=== PATIENT | male | born 1960 | race African-American/Black ===

== ENCOUNTER 2018-05-31 20:57 | Emergency (ER) | payer SELFPAY ==
[2018-05-31] MEDS ORDERED: HYDROXYZINE PAMOATE 25 MG CAPSULE (4 CAP/ER DISP) PO PRN (22:53)
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
[2018-06-01 00:28] VITALS: BP 136/104
== END 2018-05-31 23:15 | disposition home or self-care (01) ==
LOC: ER 20:57
DX: F41.9 Anxiety disorder, unspecified (principal)
CPT/HCPCS: 99283; J3490

== ENCOUNTER 2020-02-24 02:22 | Emergency (ER) | payer MEDICARE, MEDICAID ==
--- NOTE | 2020-02-24 02:57 | ER Document Report ---
ED General - General Chief Complaint: Skin Sore(s) Stated Complaint: RASH ON ANKLES Notes: 59-year-old male presents with several days of itchy rash with blisters on both legs from the feet to the mid calf bilaterally. Not spreading up the legs. Does not think he is getting any new lesions. No fever chills. 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 TRAVEL OUTSIDE OF THE [place] IN LAST 30 DAYS: No - Related Data Home Medications: metformin, trigenta 2 other meds Past Medical History - Social History Smoking Status: Current Every Day Smoker Family History: Reviewed & Not Pertinent Patient has homicidal ideation: No Renal/ Medical History: Denies: Hx Peritoneal Dialysis Review of Systems - Review of Systems Notes: REVIEW OF SYSTEMS GEN: Denies fever, chills, weight loss ENT: Denies sore throat, nasal discharge, ear pain EYES: Denies blurry vision, eye pain, discharge CV: Denies chest pain, palpitations, edema RESP: Denies cough, shortness of breath, wheezing GI: Denies abdominal pain, nausea, vomiting, diarrhea MSK: Denies joint pain/swelling, edema, SKIN: Rash as per HPI LYMPH: Denies swollen glands/lymph nodes NEURO: Denies headache, focal weakness or numbness, dizziness PSYCH: Denies depression, suicidal or homicidal ideation PHYSICAL EXAMINATION General: No acute distress, well-nourished Head: Atraumatic, normocephalic ENT: Mouth normal, oropharynx moist, no exudates or tonsillar enlargement Eyes: Conjunctiva normal, pupils equal, lids normal Neck: No JVD, supple, no guarding CVS: Normal rate, regular rhythm, no murmurs Resp: No resp distress, equal and normal breath sounds bilaterally GI: Nondistended, soft, no tenderness to palpation, no rebound or guarding Ext: Edema bilaterally symmetric Back: No CVA or midline TTP Skin: Innumerable bullae less than 1 cm, with clear serous exudate and crusting on both legs from the foot to the calf bilaterally. Tender. Compartments are soft. Lymphatic: No lymphadeopathy noted Neuro: Awake, alert. Face symmetric. GCS 15. Physical Exam - Vital signs Vitals: Temp Pulse Resp BP Pulse Ox 98.2 F 88 20 161/98 H 98 02/24/20 02:35 02/24/20 02:35 02/24/20 02:35 02/24/20 02:35 02/24/20 02:35 Course - Re-evaluation Re-evalutation: 02/24/20 02:57 Vesiculobullous eruption on both legs in a diabetic without signs, likely, given his care at home, of secondary infection next Vach or other severe complication. Vitals look good. I am going to prescribe Bactroban ointment and Keflex assuming this is impetigo for now. Do not think this reflects insect bites scabies chiggers etc. Patient is stable for discharge and will follow up with his primary care. I have discussed with the patient there likely diagnosis, aftercare plan, follow-up plans and my usual and customary return precautions. They verbalized understanding of this. - Vital Signs Vital signs: Temp Pulse Resp BP Pulse Ox 98.2 F 88 20 161/98 H 98 02/24/20 02:42 02/24/20 02:35 02/24/20 02:35 02/24/20 02:35 02/24/20 02:35 Discharge - Discharge Clinical Impression: Impetigo bullosa Condition: Good Disposition: HOME, SELF-CARE Instructions: Bactroban Ointment ([facility]), Impetigo ([facility]), Cephalexin ([facility]) Additional Instructions: Keep your legs clean by washing with soap and water once per day. Do not pop the blisters. You are a diabetic and could contract a serious infection. Prescriptions: Mupirocin [Bactroban 2% Ointment 22 gm] 1 applic TP TID #1 tube Cephalexin Monohydrate [Keflex 500 mg Capsule] 500 mg PO QID #28 capsule Referrals: BRANDI HARRIS PA-C [NO LOCAL MD] - Follow up in 3-5 days (For wound check)
[2020-02-24 04:03] VITALS: BP 148/101
== END 2020-02-24 03:50 | disposition home or self-care (01) ==
LOC: ER 02:22
DX: L01.03 Bullous impetigo (principal); F17.200 Nicotine dependence, unspecified, uncomplicated; Z79.4 Long term (current) use of insulin
CPT/HCPCS: 99282

== ENCOUNTER 2020-03-08 08:25 | Emergency (ER) | payer MEDICARE, MEDICAID ==
--- NOTE | 2020-03-08 11:00 | ER Document Report ---
ED General - General Chief Complaint: Leg Pain Stated Complaint: LEG PAIN Primary Care Provider: BRANDI HARRIS PA-C [Primary Care Provider] - Follow up as needed Mode of Arrival: Ambulatory Information source: Patient Notes: Patient is a 59-year-old male presenting to the emergency department chief complaint of lesions to bilateral lower extremities. Patient states that on 07 February he noticed the first blister since that point in time both feet and both ankles are blistered swollen and many of the blisters have ruptured he states that his cat and her kittens may have had fleas and that may have been the initiation. Patient is a diabetic and is HIV positive. Patient states that overall he is here because he cannot stand the pain and the itching. Patient denies any other exposures denies any changes in medications or hygiene products. Patient denies any other complaints above the knees. TRAVEL OUTSIDE OF THE [place] IN LAST 30 DAYS: No - HPI Onset: Other - 1 mo Onset/Duration: Gradual, Worse Quality of pain: Pressure, Throbbing Severity: Moderate Pain Level: 2 Associated symptoms: denies: Chest pain, Chills, Productive cough, Diarrhea, Fever, Nausea, Vomiting, Weakness Exacerbated by: Movement, Walking Relieved by: Denies Similar symptoms previously: Yes Recently seen / treated by doctor: Yes - Related Data Allergies/Adverse Reactions: tetracycline Allergy (Verified 03/08/20 08:33) Home Medications: atb. ointment. hiv meds. atorvastatin 40mg. glipizide er 5 mg. metformin 1000mg. symtuza [phone]. tradjuenta 5 mg Past Medical History - General Information source: Patient, [facility] Records - Social History Smoking Status: Current Every Day Smoker Cigarette use (# per day): Yes Chew tobacco use (# tins/day): No Smoking Education Provided: Yes Frequency of alcohol use: None Drug Abuse: None Lives with: Alone Family History: Reviewed & Not Pertinent Patient has suicidal ideation: No Patient has homicidal ideation: No - Past Medical History Cardiac Medical History: Reports: Hx Hypercholesterolemia Endocrine Medical History: Reports: Hx Diabetes Mellitus Type 2 Renal/ Medical History: Denies: Hx Peritoneal Dialysis Infectious Medical History: Reports: Hx HIV Past Surgical History: Reports: Hx Abdominal Surgery - hernia Review of Systems - Review of Systems Notes: REVIEW OF SYSTEMS: CONSTITUTIONAL : Denies fever, chills, or sweats. Denies recent illness. EENT: Denies eye, ear, throat, or mouth pain or symptoms. Denies nasal or sinus congestion. CARDIOVASCULAR: Denies chest pain. RESPIRATORY: Denies cough, cold, or chest congestion. Denies shortness of breath, difficulty breathing, or wheezing. GASTROINTESTINAL: Denies abdominal pain. Denies nausea, vomiting, or diarrhea. Denies constipation. GENITOURINARY: Denies difficulty urinating, painful urination, burning, frequency, or blood in urine. MUSCULOSKELETAL: Per HPI SKIN: Per HPI HEMATOLOGIC : Denies easy bruising or bleeding. NEUROLOGICAL: Denies altered mental status or loss of consciousness. Denies headache. Denies weakness or paralysis or loss of use of either side. Denies problems with gait or speech. Denies sensory or motor loss. PSYCHIATRIC: Denies suicidal or homicidal ideations 10 Systems are negative unless otherwise specified above Physical Exam - Vital signs Vitals: Temp 98.4 F 03/08/20 08:28 - Notes Notes: PHYSICAL EXAMINATION: GENERAL: Well-appearing, well-nourished and in no acute distress. HEAD: Atraumatic, normocephalic. EYES: Right eye is opacified secondary to glaucoma. Extraocular movements in tact, sclera anicteric, conjunctiva are normal. ENT: nares patent, oropharynx clear without exudates. Moist mucous membranes. NECK: Normal range of motion, supple without lymphadenopathy, no appreciable JVD LUNGS: Lungs clear to auscultation bilaterally and equal. No wheezes rales or rhonchi. HEART: Regular rate and rhythm without murmurs ABDOMEN: Soft, nontender, normal bowel sounds. No guarding, no rebound. No masses appreciated. EXTREMITIES: Active full range of motion to the upper extremities, lower extremities markedly swollen from the ankles distally both feet are swollen very poor hygiene to the lower extremities patient has multiple blisters diffusely to both feet and ankles everywhere except the soles of the feet many are ruptured. Feet are tender to palpation. NEUROLOGICAL: No focal neurological deficits. Moves all extremities spontaneously and on command. SKIN: Warm, Dry, and intact. Normal turgor, no rashes or lesions noted. Course - Re-evaluation Re-evalutation: 03/08/20 13:05 Patient has been reevaluated several times while in emergency department. Patient has remained stable. After reviewing the patient's laboratory studies I see no signs of systemic infection. Patient will be symptomatically treated with Pepcid, Keflex and instructed to follow-up with his family doc in the next couple of days. Patient's lower extremities will be bandaged and dressed by nursing staff. Patient is agreeable with care plan. - Vital Signs Vital signs: Temp Pulse Resp BP Pulse Ox 97.7 F 68 16 160/91 H 97 03/08/20 12:43 03/08/20 12:43 03/08/20 12:43 03/08/20 12:43 03/08/20 12:43 - Laboratory Result Diagrams: 03/08/20 10:34 03/08/20 10:34 Laboratory results interpreted by me: 03/08/20 03/08/20 10:34 10:34 Hgb 12.9 L MCH 26.2 L RDW 15.8 H Eos % (Auto) 6.9 H Glucose 113 H AST 76 H Total Protein 8.3 H Discharge - Discharge Clinical Impression: Impetigo Condition: Stable Disposition: HOME, SELF-CARE Instructions: Impetigo ([facility]) Prescriptions: Cephalexin Monohydrate [Keflex 500 mg Capsule] 500 mg PO Q6H 5 Days #40 capsule Famotidine [Pepcid 20 mg Tablet] 20 mg PO DAILY #12 tablet Referrals: BRANDI HARRIS PA-C [Primary Care Provider] - Follow up as needed
[2020-03-08 11:03] LABS: ABSOLUTE EOSINOPHILS # (AUTO) 0.4 10^3/uL (0.0-0.6); ABSOLUTE LYMPHOCYTES (AUTO) 1.6 10^3/uL (0.5-4.7); ABSOLUTE MONOCYTES (AUTO) 0.3 10^3/uL (0.1-1.4); ABSOLUTE NEUT (AUTO) 3.2 10^3/uL (1.7-8.2); BASOPHILS % (AUTO) 0.7 % (0-2); EOSINOPHILS % (AUTO) 6.9 % (0-6); HEMATOCRIT 39.5 % (37.9-51.0); HEMOGLOBIN 12.9 g/dL (13.5-17.0); LYMPHOCYTES % (AUTO) 28.8 % (13-45); MEAN CORPUSCULAR HEMOGLOBIN 26.2 pg (27.0-33.4); MEAN CORPUSCULAR HGB CONC 32.7 g/dL (32.0-36.0); MEAN CORPUSCULAR VOLUME 80 fl (80-97); MONOCYTES % (AUTO) 5.5 % (3-13); PLATELET COUNT 192 10^3/uL (150-450); RED BLOOD COUNT 4.93 10^6/uL (4.35-5.55); RED CELL DISTRIBUTION WIDTH 15.8 % (11.5-14.0); SEGMENTED NEUTROPHILS % (AUTO) 58.1 % (42-78); TOTAL CELLS COUNTED % (AUTO) 100 %; WHITE BLOOD COUNT 5.6 10^3/uL (4.0-10.5)
[2020-03-08 11:23] LABS: ALKALINE PHOSPHATASE 74 U/L (38-126); ANION GAP 6 (5-19); ASPARTATE AMINO TRANSFERASE 76 U/L (17-59); BILIRUBIN,TOTAL 0.4 mg/dL (0.2-1.3); BLOOD UREA NITROGEN 11 mg/dL (7-20); CALCIUM 8.9 mg/dL (8.4-10.2); CARBON DIOXIDE 25 mmol/L (22-30); CHLORIDE 107 mmol/L (98-107); GLUCOSE 113 mg/dL (75-110); POTASSIUM 3.8 mmol/L (3.6-5.0); TOTAL PROTEIN 8.3 g/dL (6.3-8.2)
[2020-03-08 12:43] VITALS: BP 160/91
== END 2020-03-08 13:27 | disposition home or self-care (01) ==
LOC: ER 08:25
DX: L01.00 Impetigo, unspecified (principal); F17.210 Nicotine dependence, cigarettes, uncomplicated; E11.9 Type 2 diabetes mellitus without complications; E78.00 Pure hypercholesterolemia, unspecified; Z79.84 Long term (current) use of oral hypoglycemic drugs; Z79.899 Other long term (current) drug therapy; Z21 Asymptomatic human immunodeficiency virus [HIV] infection status; Z88.1 Allergy status to other antibiotic agents
CPT/HCPCS: 36415; 80053; 82010; 83605; 83880; 85025; 87040; 99283

== ENCOUNTER 2020-04-17 10:36 | Emergency (ER) | payer MEDICARE, MEDICAID ==
--- NOTE | 2020-04-17 10:49 | ER Document Report ---
ED Medical Screen (RME) - General Chief Complaint: Foot Pain Stated Complaint: FOOT PAIN Time Seen by Provider: 04/17/20 10:46 Primary Care Provider: BRANDI HARRIS PA-C [Primary Care Provider] - Follow up as needed Mode of Arrival: Medic Information source: Patient Notes: 59-year-old male presented to ED for nonhealing wounds to both feet. He states he is a diabetic but he also has a cat that sits on his feet the cause blisters. He states the doctor states he is not happy with the way they are healing and there is only so much he can do so he is coming today for further evaluation and treatment. We will get blood urine and x-rays of the feet and have her evaluated by another provider. I have greeted and performed a rapid initial assessment of this patient. A comprehensive ED assessment and evaluation of the patient, analysis of test results and completion of medical decision making process will be conducted by an additional ED providers. TRAVEL OUTSIDE OF THE [place] IN LAST 30 DAYS: No - Related Data Allergies/Adverse Reactions: tetracycline Allergy (Verified 03/08/20 08:33) Past Medical History - Past Medical History Cardiac Medical History: Reports: Hx Hypercholesterolemia Endocrine Medical History: Reports: Hx Diabetes Mellitus Type 2 Renal/ Medical History: Denies: Hx Peritoneal Dialysis Infectious Medical History: Reports: Hx HIV Past Surgical History: Reports: Hx Abdominal Surgery - hernia Physical Exam - Vital signs Vitals: Temp Pulse Resp BP Pulse Ox 98.9 F 81 16 141/86 H 98 04/17/20 10:41 04/17/20 10:41 04/17/20 10:41 04/17/20 10:41 04/17/20 10:41 Course - Vital Signs Vital signs: Temp Pulse Resp BP Pulse Ox 98.9 F 81 16 141/86 H 98 04/17/20 10:41 04/17/20 10:41 04/17/20 10:41 04/17/20 10:41 04/17/20 10:41 Doctor's Discharge - Discharge Referrals: BRANDI HARRIS PA-C [Primary Care Provider] - Follow up as needed
[2020-04-17 11:49] VITALS: BP 140/83
[2020-04-17 11:57] LABS: VENOUS BLOOD BASE EXCESS 2.4 mmol/L; VENOUS BLOOD HCO3 28.9 mmol/L (20-32); VENOUS BLOOD PCO2 52.1 mmHg (35-63); VENOUS BLOOD PH 7.36 (7.30-7.42)
[2020-04-17 11:59] LABS: HEMATOCRIT 42.2 % (37.9-51.0); HEMOGLOBIN 14.1 g/dL (13.5-17.0); MEAN CORPUSCULAR HEMOGLOBIN 26.3 pg (27.0-33.4); MEAN CORPUSCULAR HGB CONC 33.3 g/dL (32.0-36.0); MEAN CORPUSCULAR VOLUME 79 fl (80-97); PLATELET COUNT 170 10^3/uL (150-450); RED BLOOD COUNT 5.34 10^6/uL (4.35-5.55); WHITE BLOOD COUNT 4.1 10^3/uL (4.0-10.5)
--- NOTE | 2020-04-17 12:08 | RADIOLOGY REPORT (SQ) ---
EXAM DESCRIPTION: FOOT BILATERAL 3 VIEWS IMAGES COMPLETED DATE/TIME: 04/17/2020 11:44 am REASON FOR STUDY: Wounds pain diabetic COMPARISON: None. NUMBER OF VIEWS: Three views. TECHNIQUE: AP, lateral and oblique without weight bearing radiographic images acquired of the right and left foot. LIMITATIONS: None. FINDINGS: MINERALIZATION: Normal. BONES: No acute fracture or dislocation. No worrisome bone lesions. Small plantar calcaneal spurs. JOINTS: No erosions. No marisol-articular osteopenia. No chondrocalcinosis. SOFT TISSUES: No swelling. No calcifications. OTHER: No other significant finding. IMPRESSION: NEGATIVE STUDY OF THE RIGHT AND LEFT FEET. INCIDENTAL SMALL HEEL SPURS. TECHNICAL DOCUMENTATION: JOB ID: [id number] 2010 [employer]- All Rights Reserved Reading location - IP/workstation name: [email or web address]
[2020-04-17 12:21] LABS: ALBUMIN 4.3 g/dL (3.5-5.0); ALKALINE PHOSPHATASE 104 U/L (38-126); ANION GAP 7 (5-19); ASPARTATE AMINO TRANSFERASE 125 U/L (17-59); BILIRUBIN,TOTAL 0.5 mg/dL (0.2-1.3); BLOOD UREA NITROGEN 14 mg/dL (7-20); CALCIUM 9.4 mg/dL (8.4-10.2); CARBON DIOXIDE 28 mmol/L (22-30); CHLORIDE 106 mmol/L (98-107); GLUCOSE 111 mg/dL (75-110); TOTAL PROTEIN 8.6 g/dL (6.3-8.2)
[2020-04-17 12:26] LABS: ABSOLUTE LYMPHOCYTES# (MANUAL) 1.4 10^3/uL (0.5-4.7); ABSOLUTE MONOCYTES # (MANUAL) 0.4 10^3/uL (0.1-1.4); BASOPHILS % (MANUAL) 1 % (0-2); EOSINOPHILS % (MANUAL) 2 % (0-6); LYMPHOCYTES % (MANUAL) 34 % (13-45); MONOCYTES % (MANUAL) 10 % (3-13); SEGMENTED NEUTROPHILS % (MAN) 53 % (42-78); TOTAL CELLS COUNTED 100
[2020-04-17 12:27] LABS: ANISOCYTOSIS 1+; PLATELET CLUMPS PRESENT; PLATELET COMMENT ADEQUATE
--- NOTE | 2020-04-17 12:47 | ER Document Report ---
Entered by LOBO DAWN SCRIBE 04/17/20 1229 Acting as scribe for:DL AYALA MD ED Wound - General Chief Complaint: Wound Recheck Stated Complaint: FOOT PAIN Time Seen by Provider: 04/17/20 10:46 Primary Care Provider: Wound Care [Provider Group] - Follow up as needed BRANDI HARRIS PA-C [Primary Care Provider] - Follow up as needed Mode of Arrival: Medic Information source: Patient Notes: This 59 year old male patient with HIV presents to the emergency department today with complaints of non-healing wounds to his bilateral feet. He reports that his cat has fleas and the fleas were biting his legs. He reports he has flea-bombed his residence several times but he is unsure if he has completely gotten rid of them. He was put on keflex on February 26, he was given one week of septra on March 12, , and without much success. He was sent here from [facility] for wound care. The patient reports that he was sent here to have the wound debrided and to go to the wound care clinic. He states that his providers tried calling wound care clinic but could not get an answer. TRAVEL OUTSIDE OF THE [place] IN LAST 30 DAYS: No - Related Data Allergies/Adverse Reactions: tetracycline Allergy (Verified 03/08/20 08:33) Past Medical History - General Information source: Patient - Social History Smoking Status: Current Every Day Smoker Cigarette use (# per day): Yes - 1 ppd Frequency of alcohol use: None Drug Abuse: None Lives with: Family Family History: Reviewed & Not Pertinent - Past Medical History Cardiac Medical History: Reports: Hx Hypercholesterolemia Endocrine Medical History: Reports: Hx Diabetes Mellitus Type 2 Infectious Medical History: Reports: Hx HIV Past Surgical History: Reports: Hx Abdominal Surgery - hernia Review of Systems - Review of Systems Constitutional: No symptoms reported EENT: No symptoms reported Cardiovascular: No symptoms reported Respiratory: No symptoms reported Gastrointestinal: No symptoms reported Genitourinary: No symptoms reported Male Genitourinary: No symptoms reported Musculoskeletal: No symptoms reported Skin: See HPI, Lesions Hematologic/Lymphatic: No symptoms reported Neurological/Psychological: No symptoms reported -: Yes All other systems reviewed and negative Physical Exam - Vital signs Vitals: Temp Pulse Resp BP Pulse Ox 98.9 F 81 16 141/86 H 98 04/17/20 10:41 04/17/20 10:41 04/17/20 10:41 04/17/20 10:41 04/17/20 10:41 - Notes Notes: Physical Exam: General: Alert, appears well. HEENT: Normocephalic. Atraumatic. PERRL. Extraocular movements intact. Oropha rynx clear. Neck: Supple. Non-tender. Respiratory: No respiratory distress. Clear and equal breath sounds bilaterally. Cardiovascular: Regular rate and rhythm. Abdominal: Normal Inspection. Non-tender. No distension. Normal Bowel Sounds. Back: No gross abnormalities. Extremities: Moves all four extremities. Upper extremities: Normal ROM. Patient has multiple papular lesions on the arms, some looks like they have whiteheads in them, others are just rounded bumps like insect bites. I do not think these are infectious or related to insect. Lower extremities: Full range of motion. Neurological: Normal cognition. AAOx4. Normal speech. Psychological: Normal affect. Normal Mood. Skin: Skin on bilateral feet and ankles is dry and cracking. There are multiple areas of blistering in various stages of healing to bilateral feet. There are some recent blisters that are intact. The blistering on the feet and ankles is very suspicious for allergic type reaction to flea bites. The patient reports that the blisters tend to ruptured when he is walking in his shoes and it rubs the blisters. Course - Re-evaluation Re-evalutation: 04/17/20 15:54 I did discuss his case with Dr. Tomer Lopez who is going to call the wound care clinic, provide the patient's name, and asked them to contact [facility] to coordinate the patient's referral into the wound care clinic and to avoid mix-ups like this in the future. - Vital Signs Vital signs: Temp Pulse Resp BP Pulse Ox 98.1 F 81 17 140/83 H 96 04/17/20 13:20 04/17/20 10:41 04/17/20 11:47 04/17/20 11:47 04/17/20 11:47 - Laboratory Result Diagrams: 04/17/20 11:45 04/17/20 11:45 Laboratory results interpreted by me: 04/17/20 04/17/20 11:45 11:45 MCV 79 L MCH 26.3 L RDW 16.0 H Glucose 111 H AST 125 H Total Protein 8.6 H Discharge - Discharge Clinical Impression: Blister (nonthermal), unspecified foot, initial encounter Condition: Stable Disposition: HOME, SELF-CARE Additional Instructions: The blistering on your feet may be due to allergic type reaction to the fleabites you are having. You will need treatment of the feet at the wound care clinic. Dr. Perla Lopez is going to contact the wound care clinic, and have that cl inic call [facility] primary care and speak with your providers to coordinate a referral for you to go to the wound care clinic. As we discussed, you should use moisturizing soaps and always put lotion in your dry skin at least 1-2 times daily. Follow-up with your primary care provider to schedule your wound care clinic visit. Referrals: BRANDI HARRIS PA-C [Primary Care Provider] - Follow up as needed Wound Care [Provider Group] - Follow up as needed I personally performed the services described in the documentation, reviewed and edited the documentation which was dictated to the scribe in my presence, and it accurately records my words and actions.
== END 2020-04-17 13:20 | disposition home or self-care (01) ==
LOC: ER 10:36
DX: S90.822A Blister (nonthermal), left foot, initial encounter (principal); S90.821A Blister (nonthermal), right foot, initial encounter; S90.522A Blister (nonthermal), left ankle, initial encounter; S90.521A Blister (nonthermal), right ankle, initial encounter; X58.XXXA Exposure to other specified factors, initial encounter; S80.862A Insect bite (nonvenomous), left lower leg, initial encounter; S80.861A Insect bite (nonvenomous), right lower leg, initial encounter; W57.XXXA Bitten or stung by nonvenomous insect and other nonvenomous arthropods, initial encounter; Y92.009 Unspecified place in unspecified non-institutional (private) residence as the place of occurrence of the external cause; L98.9 Disorder of the skin and subcutaneous tissue, unspecified; E11.9 Type 2 diabetes mellitus without complications; I10 Essential (primary) hypertension; F17.210 Nicotine dependence, cigarettes, uncomplicated; Z21 Asymptomatic human immunodeficiency virus [HIV] infection status; Z88.1 Allergy status to other antibiotic agents
CPT/HCPCS: 36415; 80053; 82803; 85025; 99284

== ENCOUNTER 2020-05-10 09:51 | Emergency (ER) | payer MEDICARE ==
[2020-05-10 09:57] VITALS: BP 172/82
== END 2020-05-10 10:50 | disposition left against medical advice (07) ==
LOC: ER 09:51
DX: Z53.21 Procedure and treatment not carried out due to patient leaving prior to being seen by health care provider (principal)

== ENCOUNTER → 2020-05-10 | Outpatient (CLI) | payer MEDICAID, MEDICARE ==
--- NOTE | 2020-05-10 15:39 | RADIOLOGY REPORT (SQ) ---
EXAM DESCRIPTION: ARTERIAL LOWER EXTREM BILAT IMAGES COMPLETED DATE/TIME: 05/10/2020 3:11 pm REASON FOR STUDY: ULCER L97.512 NON-PRS CHRONIC ULCER OTH PRT RIGHT FOOT W FAT LAYER COMPARISON: None. TECHNIQUE: Dynamic and static soriano scale and color images acquired of the lower extremity arteries. Additional selected spectral images recorded. ABIs recorded. LIMITATIONS: None. FINDINGS: RIGHT LEG: ABIS: 0.69-0.77 INFLOW ARTERIES: Not evaluated. FEMORAL ARTERIES:Multiphasic waveforms. Normal, no velocity elevation to suggest focal stenosis. Norm al color Doppler evaluation. No aneurysm. POPLITEAL ARTERY:Multiphasic waveforms. Normal, no velocity elevation to suggest focal stenosis. Norm al color Doppler evaluation. No aneurysm. PATENT TIBIOPERONEAL TRUNK AND 3 VESSEL RUNOFF: Yes, normal vessels. TBI: Not performed. OTHER: No other significant finding. LEFT LEG: ABIS: 0.77-0.92. INFLOW ARTERIES: Normal, no obstruction evident. FEMORAL ARTERIES:Multiphasic waveforms. Normal, no velocity elevation to suggest focal stenosis. Norm al color Doppler evaluation. No aneurysm. POPLITEAL ARTERY:Multiphasic waveforms. Normal, no velocity elevation to suggest focal stenosis. Norm al color Doppler evaluation. No aneurysm. PATENT TIBIOPERONEAL TRUNK AND 3 VESSEL RUNOFF: Yes. Elevated velocity posterior tibial artery 1.6 m /sec. TBI: Not performed. OTHER: No other significant finding. IMPRESSION: ABIs as above. No significant stenosis above the knees. Small vessel disease. COMMENT: [facility] NORMAL: Greater than 1.0 MINIMAL DISEASE: 0.9 to 1.0 CLAUDICATION: 0.5 to 0.9 SEVERE ARTERIAL DISEASE: Less than 0.5 [facility] NORMAL: Greater than 1.0 (1.2 If Heavy Calcifications) NORMAL TO MILD ISCHEMIA: 0.8 to 1.0 MODERATE ISCHEMIA: 0.4 to 0.8 SEVERE ISCHEMIA: Less than 0.4 TECHNICAL DOCUMENTATION: JOB ID: [id number] [employer]- All Rights Reserved Reading location - IP/workstation name: [email or web address]
== END ==
LOC: SP 10:56
PROVIDERS: ATTEND Nurse Practitioner Family
DX: L97.512 Non-pressure chronic ulcer of other part of right foot with fat layer exposed (principal); L97.522 Non-pressure chronic ulcer of other part of left foot with fat layer exposed
CPT/HCPCS: 93925